=== PATIENT | female | born 1985 | race Caucasian/White ===

== ENCOUNTER 2024-02-20 13:41 | Emergency (ER) | payer OTHER, SELFPAY ==
[2024-02-20 13:42] VITALS: BP 146/90; PULSE 121; RESP 16; TEMP 36.8; O2SAT 98; BMI 32.3
[2024-02-20 13:47] VITALS: O2SAT 100
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
[2024-02-20] MEDS: 0.9% Normal Saline (1000mL) 1,000 ML 999 ML IV (14:14)
[2024-02-20 14:26] LABS: Absolute Lymphocyte Count 2.84 X10^3/uL (0.83-4.51); Absolute Neutrophil Count 7.7 X10^3/uL (2.0-7.7); Basophil# 0.05 X10^3/uL; Basophil% 0.4 % (0-1); Eosinophil# 0.12 X10^3/uL; Eosinophils% 1.1 % (0-5); Hematocrit 43.8 % (37-47); Lymphocyte # 2.84 X10^3/ul (0.83-4.51); Mean Corpuscular Hgb 28.3 pg (27.0-32.0); Mean Corpuscular Volume 88.7 fL (81-99); Monocyte# 0.58 X10^3/uL; Monocyte% 5.1 % (0-10); NRBC Flagged by Analyzer 0 % (0-5); Neutrophil # 7.72 X10^3/uL (2.7-7.7); Neutrophil % 67.9 % (47-70); Platelet Count 222 K/mm3 (150-450); RBC Distribution Width CV 13.2 % (11.6-14.6); RBC Distribution Width SD 42.5 fl (35.1-43.9); Red Blood Count 4.94 M/mm3 (4.2-5.4); White Blood Count 11.4 K/mm3 (4.4-11.0)
[2024-02-20 14:38] LABS: AST(SGOT) 126 U/L (15-37); Alanine Aminotransfer ALT/SGPT 102 U/L (13-56); Albumin, Serum 3.1 g/dL (3.2-5.0); Alkaline Phosphatase 61 U/L (45-117); Anion Gap 8 (5-15); BUN 19 mg/dL (7-18); BUN/Creat Ratio 14.8 RATIO (10-20); Bilirubin, Direct 0.19 mg/dL (0.00-0.30); Calcium,Total 8.3 mg/dL (8.5-10.1); Chloride 106 mmol/L (98-107); Creatinine, Serum 1.28 mg/dL (0.55-1.02); EST Glomerular Filtration Rate 50 mL/min (>60); Est Glom Filt Rate - Afr Amer 60 mL/min (>60); Globulin 3.9 g/dL (2.2-4.2); Glucose 141 mg/dL (74-106); Lipase 47 U/L (13-75); Potassium 3.1 mmol/L (3.5-5.1); Sodium Level 136 mmol/L (136-145)
[2024-02-20 14:42] VITALS: BP 132/92; PULSE 105; RESP 22; O2SAT 100
[2024-02-20] MEDS: Potassium Chloride Oral Tablet 20 MEQ 40 MEQ PO (15:19)
[2024-02-20 15:24] VITALS: BP 169/91; PULSE 96; RESP 20; TEMP 36.7; O2SAT 98
== END 2024-02-20 15:25 | disposition home or self-care (01) ==
PROVIDERS: Emergency Provider Emergency Medicine; Visit Provider Emergency Medicine
DX: S06.0X9A Concussion with loss of consciousness of unspecified duration, initial encounter (principal); S20.20XA Contusion of thorax, unspecified, initial encounter; S00.83XA Contusion of other part of head, initial encounter; S00.31XA Abrasion of nose, initial encounter; E87.6 Hypokalemia; V19.9XXA Pedal cyclist (driver) (passenger) injured in unspecified traffic accident, initial encounter; Y93.55 Activity, bike riding
CPT/HCPCS: 70450; 71260; 72125; 74177; 80048; 80076; 83690; 85025; 99284; Q9967

== ENCOUNTER 2024-04-08 17:50 | Observation (INO) | payer OTHER, SELFPAY ==
[2024-04-08 17:51] VITALS: BP 136/85; PULSE 107; RESP 18; TEMP 36.8; O2SAT 99; BMI 30.9
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
--- NOTE | 2024-04-08 18:11 | EKG12_ITS ---
Test Reason : SYNCOPE Blood Pressure : */* mmHG Vent. Rate : 107 BPM Atrial Rate : 107 BPM P-R Int : 134 ms QRS Dur : 70 ms QT Int : 338 ms P-R-T Axes : 36 20 60 degrees QTcB Int : 451 ms Sinus tachycardia Minimal voltage criteria for LVH, may be normal variant ( R in aVL ) Borderline ECG Confirmed by KAILASH DICKSON, ADEOLA ([id number]), continuity editor KATIE BUTLER ([id number]) on 04/11/2024 9:37:47 AM Referred By: Gianluca Robles Confirmed By: ADEOLA LINDER MD
[2024-04-08 18:19] LABS: Absolute Lymphocyte Count 3.02 X10^3/uL (0.83-4.51); Absolute Neutrophil Count 5.1 X10^3/uL (2.0-7.7); Basophil# 0.05 X10^3/uL; Basophil% 0.6 % (0-1); Eosinophil# 0.14 X10^3/uL; Eosinophils% 1.6 % (0-5); Hematocrit 43.7 % (37-47); Hemoglobin 14.8 g/dL (12.0-15.0); Lymphocyte # 3.02 X10^3/ul (0.83-4.51); Lymphocyte % 33.7 % (19-41); Mean Corp Hgb Conc 33.9 g/dL (32-36); Mean Corpuscular Hgb 29.4 pg (27.0-32.0); Mean Corpuscular Volume 86.9 fL (81-99); Mean Platelet Vol. 9.7 fl (6.2-12.0); Monocyte# 0.63 X10^3/uL; NRBC Flagged by Analyzer 0 % (0-5); Neutrophil % 56.8 % (47-70); Platelet Count 243 K/mm3 (150-450); RBC Distribution Width CV 13.3 % (11.6-14.6); RBC Distribution Width SD 42.2 fl (35.1-43.9); Red Blood Count 5.03 M/mm3 (4.2-5.4)
--- NOTE | 2024-04-08 18:32 | RAD_ITS ---
STUDY: X-RAY CHEST REASON FOR EXAM: Female, 38 years old. chest pain TECHNIQUE: Single frontal view of the chest. COMPARISON: CT chest February 20, 2024 negative. FINDINGS: Possible new 16 mm faint nodular density left upper lung field. There is no demonstrated pleural abnormality. Normal size heart. Normal mediastinum and micha. Normal visualized pulmonary arteries. Normal visualized aortic arch and descending thoracic aorta. Normal visualized thoracic spine. Normal visualized ribs, clavicles, and shoulders. There is no demonstrated abnormality of the visualized soft tissue structures of the upper abdomen. RAD/Chest 1 View (Portable) IMPRESSION: Left upper lobe density as above. Recommend CT chest with IV contrast. Differential considerations include infectious, inflammatory, neoplastic etiologies. Electronically Signed: Kamaljit Garcia MD at 19:21 EDT ,
[2024-04-08 18:38] LABS: D-Dimer Quantitative (DVT/PE) 0.75 FEU/ug/m (0.27-0.49)
[2024-04-08 18:40] LABS: Anion Gap 8 (5-15); BUN 17 mg/dL (7-18); BUN/Creat Ratio 17.5 RATIO (10-20); Calcium,Total 9.1 mg/dL (8.5-10.1); Chloride 103 mmol/L (98-107); Creatinine, Serum 0.97 mg/dL (0.55-1.02); EST Glomerular Filtration Rate 68 mL/min (>60); Est Glom Filt Rate - Afr Amer 83 mL/min (>60); Estimated Creatinine Clearance 85.24 ml/min; Glucose 97 mg/dL (74-106); Magnesium 2.2 mg/dL (1.6-2.6); Potassium 3.4 mmol/L (3.5-5.1); Sodium Level 136 mmol/L (136-145); Troponin-I HS (w/2H Reflex) 8 pg/mL (3.0-54.0)
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
[2024-04-08 19:51] VITALS: BP 135/92; PULSE 88; RESP 16; O2SAT 98
[2024-04-08 20:14] LABS: Reflex Troponin-HS? (from REC) Y
[2024-04-08 21:00] VITALS: BP 120/89; PULSE 87; RESP 16; O2SAT 97
[2024-04-08 21:11] LABS: Troponin-I HS 40 pg/mL (3.0-54.0)
[2024-04-08 21:36] VITALS: BP 126/89; PULSE 90; RESP 18; TEMP 36.6; O2SAT 97
[2024-04-08] MEDS: Potassium Chloride Oral Tablet 20 MEQ 40 MEQ PO (21:54)
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
[2024-04-08 23:00] VITALS: BP 120/89; PULSE 100; RESP 16; O2SAT 97
--- NOTE | 2024-04-08 23:42 | ECHOCS_ITS ---
Version 2 Reason For Study: Syncope/Near Syncope Procedure This was a 2D Doppler, Color Flow transthoracic echocardiogram. Contrast injection was performed. Exam performed portable in patient room. Left Ventricle Normal LV size. Lateral wall with some non compaction noted. Left ventricular systolic function is normal. The left ventricular ejection fraction is 60 %. No regional wall motion abnormalities noted. Right Ventricle Normal RV size. Normal systolic function. Atria Normal left atrium. Normal right atrium. Mitral Valve Normal mitral valve. Tricuspid Valve Normal tricuspid valve. Aortic Valve Trisinus/trileaflet aortic valve. Pulmonic Valve Normal pulmonic valve. Mild (1+) pulmonic valve insufficiency. Great Vessels Normal aortic root. The pulmonary artery is normal size. Inferior vena cava collapse with respiration. Pericardium/Pleural No pericardial effusion. Medication Diluted definity 1.5ml given slow IV push to enhance endocardial definition. MMode/2D Measurements & Calculations LVIDd: 4.5 cm IVSd: 0.74 cm asc Aorta Diam: 2.3 cm LVIDs: 3.3 cm LVPWd: 0.75 cm FS: 26.9 % LAV(MOD-bp): 25.5 ml LVAd ap4: 23.8 cm2 SV(MOD-sp4): 42.0 ml LAV(MOD-bp) Indexed: 13.3 ml/m2 LVLd ap4: 6.9 cm SI(MOD-sp4): 21.9 ml/m2 LAV(MOD-sp2): 20.8 ml EDV(MOD-sp4): 67.4 ml LAV(MOD-sp4): 29.1 ml EDV(sp4-el): 70.0 ml LVAs ap4: 13.3 cm2 LVLs ap4: 5.7 cm ESV(MOD-sp4): 25.4 ml ESV(sp4-el): 26.4 ml EF(MOD-sp4): 62.3 % EF(sp4-el): 62.3 % SV(sp4-el): 43.6 ml LA A4 area: 12.9 cm2 LA dimension(2D): 3.7 cm RA A4 area: 11.3 cm2 Time Measurements MV dec time: 0.23 sec Doppler Measurements & Calculations MV E max harrison: 97.6 cm/sec Lat Peak E' Harrison: 18.3 cm/sec Med Peak E' Harrison: 9.6 cm/sec MV A max harrison: 51.6 cm/sec E/E' lat: 5.3 E/E' med: 10.1 MV E/A: 1.9 MV dec slope: 417.1 cm/sec2 Ao V2 max: 133.1 cm/sec LV V1 max: 96.8 cm/sec Ao max P.1 mmHg LV V1 max P.8 mmHg Ao V2 mean: 96.2 cm/sec Ao mean P.0 mmHg Ao V2 VTI: 27.8 cm PA V2 max: 88.8 cm/sec ECHO/Echo Complete W/ Contrast Interpretation Summary Normal LV size. Left ventricular systolic function is normal. The left ventricular ejection fraction is 60 %. Lateral wall with some non compaction noted. No regional wall motion abnormalities noted. Ordering Physician: Lincoln Madrigal Performed By: Kyung Means RDCS, RVT
[2024-04-08 23:49] VITALS: BMI 34.6
[2024-04-09 00:03] VITALS: BP 131/88; PULSE 77; RESP 15; TEMP 36.1; O2SAT 97
[2024-04-09 00:06] VITALS: O2SAT 97
[2024-04-09] MEDS: 0.9% Normal Saline (1000mL) 1,000 ML 75 ML IV (00:23)
[2024-04-09 06:03] VITALS: BP 116/76; PULSE 76; RESP 16; TEMP 36.6; O2SAT 98
[2024-04-09 07:06] VITALS: BP 116/76; BP 117/79; BP 118/79; PULSE 76; PULSE 86; PULSE 88
[2024-04-09 07:32] LABS: Troponin-I HS 13 pg/mL (3.0-54.0)
[2024-04-09] MEDS: Enoxaparin 40 MG/0.4 ML Syringe SC (10:15)
[2024-04-09 10:20] VITALS: BP 117/79; PULSE 82; RESP 18; TEMP 36.7; O2SAT 98
--- NOTE | 2024-04-09 12:43 | DCINST_ITS ---
Discharge Instructions Diet Discharge Diet: No restrictions Activity Discharge Activity: Return to Normal Activity Weight Bearing Status: Full weight bearing Follow Up Care Test Results: Test results from this visit will be discussed in further detail at your follow- up appointment, if applicable. Discharge Plan Admission Admit Date/Time: 04/08/24 22:16 Primary Reason for Your Visit: syncope Attending Provider: Bright Sinclair Primary Care Provider: Care Physician,No Primary Consulting Providers: Alonso Negrete; Ashley Polk; Brenda Simms; Kyle Chakraborty; Ender Norris; Willem Mast; GRIS DAVIS; Latisha Dumont; Nickie Richards; Frdedie Tejeda; Lilo Carnes; Lincoln Madrigal Instructions Additional Instructions / Restrictions: When you see your physician, discuss having an EEG performed to rule out seizure disorder See your primary care physician within 2 weeks Discharge Orders/Prescriptions Prescriptions: New potassium chloride 10 mEq tablet,ER particles/crystals 20 meq PO DAILY Qty: 60 0RF Continued overall wellness 10 drp PO TID Patient Comments: 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
--- NOTE | 2024-04-09 12:45 | PCM.DC.SUM ---
Providers Date of Admission: 04/08/24 Date of Discharge: 04/09/24 Primary Care Physician: No Primary Care Phys Reason For Visit: syncope Diagnosis Discharge Diagnosis (1) Syncope and collapse: Status: Acute Code(s): R55 - Syncope and collapse (2) Hypokalemia: Status: Acute Code(s): E87.6 - Hypokalemia (3) Obesity (BMI 30.0-34.9): Status: Acute Code(s): E66.811 - Obesity, class 1 (4) Hx of fracture of rib: Status: Acute Code(s): Z87.81 - Personal history of (healed) traumatic fracture Plan 1. Syncopal episode etiology unclear #2 hypokalemia Medications at Discharge Home Medications drainer 10 drp PO TID 04/08/24 overall wellness 10 drp PO TID 04/08/24 potassium chloride 10 mEq tablet,extended release(part/cryst) 20 meq (2 x 10 mEq) PO DAILY #60 tabs 04/09/24 Hospital Course Operations None Procedures 2-D Echocardiogram Summary of Care Provided Minutes Spent on Discharge: 30 Hospital Course: This 38-year-old white female was seen in the emergency room at [facility] after suffering a syncopal episode at home on her couch. According to the patient's mother she was at approximately 10 minutes, she awoke after that time and was not groggy or somnolent. In the emergency room, labs were remarkable for a potassium of 3.4 otherwise labs were normal. Chest x-ray was performed that showed a left upper lobe density, CTA was then obtained which showed a callus from multiple subacute rib fractures that the patient had suffered recently. Patient was placed in observation status on PCU, she underwent an echocardiogram which was unremarkable. An EEG and carotid Dopplers were ordered but could not be performed due to the weekend. This examiner did not feel the patient needed carotid Dopplers performed but did advise the patient and her mother to talk to her physician about obtaining an outpatient EEG. I think it was unlikely this was a seizure however. Telemetry showed only a brief (2-second) episode of bradycardia in the 30s which was asymptomatic. On 04/09/2024, patient was seen and examined: On examination she appeared in good health and spirits, she does not appear to be in any distress. Vital signs as documented. Skin warm and dry and without overt rashes. Neck without JVD, thyroid appears normal, trachea is midline, neck is supple. Lungs clear, normal air movement was noted. Heart exam notable for regular rhythm, normal sounds and absence of murmurs, rubs or gallops. Abdomen unremarkable and without evidence of organomegaly, masses, or abdominal aortic enlargement, bowel sounds are present in all 4 quadrants, no abdominal tenderness was noted. Extremities nonedematous, no cyanosis was noted, no clubbing was noted. Neuro: Cranial nerves II through XII are grossly intact, no focal motor deficits were noted, sensation to light touch and pinprick is intact, motor exam 5/5 throughout. Psych: Patient is alert and oriented x3, she does not appear anxious or depressed, she does not appear agitated. Patient was discharged on 04/09/2024 in stable condition Weight / BMI Weight Weight: 80.4 kg Body Mass Index (BMI) 34.6 ABG / Lab / Microbiology Data 04/08/24 18:03 04/08/24 18:03 Laboratory: Laboratory Results - last 24 hr 04/08/24 18:03: WBC 9.0, RBC 5.03, Hgb 14.8, Hct 43.7, MCV 86.9, MCH 29.4, MCHC 33.9, RDW Std Deviation 42.2, RDW Coeff of Yoly 13.3, Plt Count 243, MPV 9.7, Immature Gran % (Auto) 0.300, Neut % (Auto) 56.8, Lymph % (Auto) 33.7, [place] % (Auto) 7.0, Eos % (Auto) 1.6, Baso % (Auto) 0.6, Absolute Neuts (auto) 5.1, Absolute Lymphs (auto) 3.02, Nucleated RBC % 0, D-Dimer Quant (PE/DVT) 0.75 H*, Sodium 136, Potassium 3.4 L, Chloride 103, Carbon Dioxide 25.0, Anion Gap 8, BUN 17, Creatinine 0.97, Estim Creat Clear Calc 85.24, Est GFR (MDRD) Af Amer 83, Est GFR (MDRD) Non-Af 68, BUN/Creatinine Ratio 17.5, Glucose 97, Calcium 9.1, Magnesium 2.2, Troponin I High Sens 8, TSH 3.180 04/08/24 20:18: Troponin I High Sens 40 04/09/24 06:30: Troponin I High Sens 13 Radiography Diagnostic Testing: Radiology Impression Chest X-Ray 04/08/24 18:32 IMPRESSION: Left upper lobe density as above. Recommend CT chest with IV contrast. Differential considerations include infectious, inflammatory, neoplastic etiologies. Electronically Signed: Kamaljit Garcia MD at 19:21 EDT Reading Location ID and State: [facility] / [place] Tel , Service support , Chest CTA 04/08/24 18:43 IMPRESSION: Callus from multiple subacute rib fractures appears to account for the radiographic findings. No pulmonary nodules or masses noted. Electronically Signed: Kamaljit Garcia MD at 19:57 EDT Reading Location ID and State: [facility] / [place] Tel , Service support , Echocardiogram 04/08/24 23:42 Interpretation Summary Normal LV size. Left ventricular systolic function is normal. The left ventricular ejection fraction is 60 %. Lateral wall with some non compaction noted. Ordering Physician: Lincoln Madrigal Performed By: Kyung Means, ALEC, RVT D/C Instructions Discharge Diet: No restrictions Weight Bearing Status: Full weight bearing Meaningful Use Info Meaningful Use Meaningful Use Diagnoses (Choose all that apply): None applicable Ischemic Stroke Statin Dosing Therapy Reference: STATIN DOSE THERAPY REFERENCE: * Patients > 75 years receive moderate or high dose statin therapy. * Patients 75 years or YOUNGER should receive HIGH intensity statin dose unless contraindicated. You will be required to document reason for non-treatment if statin daily dose does not meet guidelines. HIGH DOSE STATIN THERAPY DAILY Atorvastatin > than or = to 40 mg Rosuvastatin > than or = to 20 mg Amlodipine + Atorvastatin > than or = to 2.5/40 mg Ezetimibe + Simvastatin 10/80 mg Simvastatin 80mg Discharge Plan Admission Admit Date/Time: 04/08/24 22:16 Primary Reason for Your Visit: syncope Attending Provider: Bright Sinclair Primary Care Provider: Care Physician,No Primary Consulting Providers: Alonso Negrete; Ashley Polk; Brenda Simms; Kyle Chakraborty; Ender Norris; Willem Mast; GRIS DAVIS; Latisha Dumont; Nickie Richards; Freddie Tejeda; Lilo Carnes; Lincoln Madrigal Instructions Additional Instructions / Restrictions: When you see your physician, discuss having an EEG performed to rule out seizure disorder See your primary care physician within 2 weeks Discharge Orders/Prescriptions Prescriptions: New potassium chloride 10 mEq tablet,ER particles/crystals 20 meq PO DAILY Qty: 60 0RF Continued overall wellness 10 drp PO TID Patient 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
[2024-04-09 12:55] VITALS: BP 117/79; PULSE 82; RESP 18; TEMP 36.7; O2SAT 98
== END 2024-04-09 12:45 | disposition home or self-care (01) ==
LOC: ED 21:27 → PCU 23:02
PROVIDERS: Admitting Provider Internal Medicine; Emergency Provider Emergency Medicine; Referring Provider Emergency Medicine; Visit Provider Internal Medicine
DX: R55 Syncope and collapse (principal); E87.6 Hypokalemia; J98.4 Other disorders of lung; E66.811 Obesity, class 1; Z68.34 Body mass index [BMI] 34.0-34.9, adult; R00.1 Bradycardia, unspecified; Z87.81 Personal history of (healed) traumatic fracture
CPT/HCPCS: 36415; 71045; 71275; 80048; 83735; 84443; 84484; 85025; 85379; 93005; 93306; 96360; 96361; 96372; 99221; 99285; J7030; Q9957; Q9967; A4216; C8929; G0378

== ENCOUNTER 2024-05-29 10:45 | Emergency (ER) | payer OTHER, SELFPAY ==
[2024-05-29 10:46] VITALS: BP 140/88; PULSE 112; RESP 20; TEMP 36.8; O2SAT 96; BMI 36.1
--- NOTE | 2024-05-29 11:10 | EX.ED.DYSGE1 ---
HPI History of Present Illness Chief Complaint: Seizure [facility] Medical History Syncope and collapse Home Medications ?Medication ?Instructions ?Recorded ?Last Taken ?Type drainer 10 drp PO TID 04/08/24 Unknown History overall wellness 10 drp PO TID 04/08/24 Unknown History potassium chloride 10 mEq 20 meq (2 x 10 mEq) PO DAILY #60 04/09/24 Unknown Rx tablet,extended release(part/cryst) tabs Allergy/AdvReac Type Severity Reaction Status Date / Time No Known Allergies Allergy Verified 05/29/24 10:49 Social History Smoking Status: Never smoker EXAM Physical Exam Const Vital Signs: 05/29/24 10:46 05/29/24 12:41 Temperature 98.2 F Temperature Source Oral Pulse Rate 112 H 90 Respiratory Rate 20 H 24 H Blood Pressure 140/88 H 114/89 H Blood Pressure Mean 105 97 Pulse Ox 96 98 Oxygen Delivery Method Room Air Room Air MDM MDM MDM Narrative Medical decision making narrative: HISTORY OF PRESENT ILLNESS: This 38-year-old female presents concern for seizure-like activity. Per the patient and loved one the patient started approximate hour prior to arrival. She has transient loss of consciousness and immediate return to baseline. No tongue biting, no bowel or bladder incontinence. It was not preceded by headache, chest pain, abdominal pain, warmth, dizziness, vomiting or diarrhea. Per EMS patient was postictal on their arrival REVIEW OF SYSTEMS: Pertinent positives: Syncope for seizure, headache Pertinent negatives: Chest pain, shortness of breath, bleeding, vomiting PHYSICAL EXAM: Nursing triage notes reviewed, Vital signs reviewed Constitutional: please see mdm HENT: MMM, no tongue biting Eyes: Pupils equal round and reactive to light, Extraocular muscles intact Neck: No stridor, no JVD, full neck ROM Lungs: Clear to auscultation, No wheezing or rales. No increased work of breathing, no conversational dyspnea, no accessory muscle use, no nasal flaring. No respiratory distress noted Heart: Regular rate and rhythm, No murmurs, No rubs and No gallops, 2+ distal pulses (radial, femoral, posterior tibial) in all extremities Abdomen: Soft, there is no tenderness, rigidity, rebound or guarding, no obvious peritoneal signs, no palpable pulsatile abdominal masses, no auscultated abdominal bruit : No CVAT, no signs of bowel bladder incontinence Extremities: No edema Neuro: Alert and oriented x3, neuro exam at baseline, cranial nerves II through XII are intact. No pain with extraocular muscle movement. There is negative test of skew. 5 of 5 strength in upper and lower extremities in flexion extension. Intact sensation to light touch in upper and lower extremity dermatomes. No truncal or extremity ataxia. No dysdiadochokinesia. Normal gait. 2+ reflexes in upper and lower extremities. No meningeal signs. Negative Babinski. NIH of 0. Skin: No rash or lesions noted MEDICAL DECISION MAKING: Chief Complaint: Syncope for seizure External records reviewed: [Reviewed prior echocardiogram from April 2024: Showed ejection fraction of 60% with no regional wall motion abnormalities Factors affecting care: History of syncope, obesity, hypokalemia Social determinants of health: none History obtained from others: none Consults: none MDM Narrative: The patient was initially tachycardic rate of 112, otherwise afebrile and nontoxic-appearing. Initial neurologic exam was intact I considered the following differential diagnosis: ICH, electrolyte disturbance, anemia, myocardial ischemia, arrhythmia I obtained a broad lab and imaging workup ALL IMAGES (IF OBTAINED) HAVE BEEN PERSONALLY REVIEWED AND INTERPRETED BY MYSELF. EKG with normal sinus rhythm, normal axis, normal intervals, no STEMI CBC without leukocytosis, severe anemia, no thrombocytopenia. CMP without evidence of acute kidney injury, significant electrolyte abnormality, anion gap to suggest end organ hypo-perfusion, no evidence of metabolic acidosis with a normal bicarbonate, no evidence of hepatobiliary obstructive pathology. Lactate is wnl indicating no end-organ hypoperfusion and/or hypoxia. I have personally reviewed the patient's chest x-ray. Chest x-ray is unremarkable for pulmonary edema, pneumothorax, pneumonia or focal cardiopulmonary abnormality. CT head the brain was negative for ICH Initial troponin was 4, delta troponin 22. Delta of 18 still rules out based on high-sensitivity troponin protocol of 20. The synthesis of the patient's history, physical exam, labs images suggest no acute life-limiting etiology. Specifically clinically the patient's presentation was not consistent with seizure. Lactate was negative. No tongue biting or bowel or bladder incontinence. Low suspicion for seizure. In terms of syncope the patient had no signs of severe anemia, electrolyte disturbances, signs of pneumothorax, heart failure, pericardial effusion, myocardial ischemia. There is no clear life or limb threatening etiology that could be ascertained. No indication for admission at this time. I was further reassured the patient did not require admission given her recent admission with a echocardiogram which was reassuring. Will give her close outpatient cardiology follow-up. Instructed patient not to drive or swim. The patient and/or family, caregivers express understanding. The patient and/or family, caregivers agrees with the plan. Shared decision making: I will have a discussion with the patient and or visitors regarding risk/benefits of further testing or admission. They will be made aware of of the risk/benefits inherent in this decision they will be given the opportunity to voice understanding. Total critical care time today provided was at least 0 minutes. This excludes separately billable procedures. Critical care time (if documented) is secondary to the patient having high probability of clinically significant/life threatening deterioration in the patient's condition which required my urgent intervention. Impression: 1. Syncope 2. Tachycardia Dispo: Discharge home This note was generated with [employer] dictation software. It may contain incorrect words, spelling, and punctuation that were not noted in review of the chart prior to signing. Lab Data Labs: Laboratory Results - last 24 hr 05/29/24 05/29/24 05/29/24 11:00 11:57 13:00 WBC 6.4 RBC 5.00 Hgb 14.3 Hct 43.7 MCV 87.4 MCH 28.6 MCHC 32.7 RDW Std Deviation 41.6 RDW Coeff of Yoly 13.2 Plt Count 234 MPV 10.0 Sodium 136 Potassium 4.2 Chloride 105 Carbon Dioxide 27.0 Anion Gap 4 L BUN 13 Creatinine 0.90 Estim Creat Clear Calc 82.28 Est GFR (MDRD) Af Amer 90 Est GFR (MDRD) Non-Af 74 BUN/Creatinine Ratio 14.4 Glucose 105 Lactic Acid 1.4 Calcium 8.7 Total Bilirubin 0.80 AST 13 L ALT 19 Alkaline Phosphatase 64 Troponin I High Sens 4 22 Total Protein 7.3 Albumin 3.2 Globulin 4.1 Albumin/Globulin Ratio 0.8 L Radiography Diagnostic Testing: Clinical Impression(s) from Imaging Studies Brain CT 05/29/24 11:46 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 Otherwise, no evidence of acute intracranial pathology. RECOMMENDATIONS: Consider follow-up MRI. Electronically Signed: Derek FournierShana Singh DO at 12:57 EST , Chest X-Ray 05/29/24 12:25 IMPRESSION: No radiographic evidence of acute cardiopulmonary disease. Electronically Signed: Derek FournierShana Singh DO at 12:58 EST , Discharge Plan Triage Chief Complaint: Seizure ED Provider: Ramone Mcleod Dx/Rx/DC Orders Prescriptions: No Action overall wellness 10 drp PO TID Patient Comments: pts own medication drainer 10 drp PO TID Patient Comments: pts own medication potassium chloride 10 mEq tablet,ER particles/crystals 20 meq PO DAILY Qty: 60 0RF Primary Care Provider: Jamari Marvin Referrals: Jamari Marvin DO [Primary Care Provider] - Print Language: Wolof
--- NOTE | 2024-05-29 11:46 | EKG12_ITS ---
Test Reason : SEIZERS Blood Pressure : */* mmHG Vent. Rate : 86 BPM Atrial Rate : 86 BPM P-R Int : 132 ms QRS Dur : 82 ms QT Int : 352 ms P-R-T Axes : 40 26 53 degrees QTcB Int : 421 ms Normal sinus rhythm Normal ECG Confirmed by KAILASH DICKSON, ADEOLA ([id number]), acquisition editor KAITE BUTLER ([id number]) on 05/30/2024 8:26:36 AM Referred By: Confirmed By: ADEOLA LINDER MD
--- NOTE | 2024-05-29 11:46 | CT_ITS ---
EXAM: CT HEAD WITHOUT INTRAVENOUS CONTRAST CLINICAL INDICATION: WONG, syncope vs seizure TECHNIQUE: Multiple axial images were obtained of the head without intravenous contrast. This CT exam was performed using one or more of the following dose reduction techniques: automated exposure control, adjustment of the mA and/or kV according to patient size, and/or use of iterative reconstruction technique. 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 There is no mass, mass-effect, or shift of the midline structures. No evidence of acute infarct or acute intracranial hemorrhage. There is no evidence of pathologic extra-axial fluid. There is no hydrocephalus. Basal cisterns are otherwise patent. BONES/JOINTS: No significant abnormality. No discrete lytic or blastic abnormalities. SINUSES: No significant findings. MASTOID AIR CELLS: No significant effusion. ORBITS: No acute findings. 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 Otherwise, no evidence of acute intracranial pathology. RECOMMENDATIONS: Consider follow-up MRI. Electronically Signed: Derek Singh DO at 12:57 EST ,
[2024-05-29] MEDS: 0.9% Normal Saline (500mL Bag) 500 ML 1000 ML IV (11:59)
[2024-05-29] MEDS: Ondansetron 4 MG/2 ML Vial IV (11:59)
[2024-05-29 12:09] LABS: Hematocrit 43.7 % (37-47); Hemoglobin 14.3 g/dL (12.0-15.0); Mean Corp Hgb Conc 32.7 g/dL (32-36); Mean Corpuscular Hgb 28.6 pg (27.0-32.0); Mean Corpuscular Volume 87.4 fL (81-99); Platelet Count 234 K/mm3 (150-450); RBC Distribution Width CV 13.2 % (11.6-14.6); RBC Distribution Width SD 41.6 fl (35.1-43.9); White Blood Count 6.4 K/mm3 (4.4-11.0)
[2024-05-29 12:25] LABS: ALB/GLOB Ratio 0.8 RATIO (0.9-2.4); AST(SGOT) 13 U/L (15-37); Alanine Aminotransfer ALT/SGPT 19 U/L (13-56); Albumin, Serum 3.2 g/dL (3.2-5.0); Alkaline Phosphatase 64 U/L (45-117); Anion Gap 4 (5-15); BUN 13 mg/dL (7-18); BUN/Creat Ratio 14.4 RATIO (10-20); Calcium,Total 8.7 mg/dL (8.5-10.1); Chloride 105 mmol/L (98-107); EST Glomerular Filtration Rate 74 mL/min (>60); Est Glom Filt Rate - Afr Amer 90 mL/min (>60); Estimated Creatinine Clearance 82.28 ml/min; Globulin 4.1 g/dL (2.2-4.2); Glucose 105 mg/dL (74-106); Potassium 4.2 mmol/L (3.5-5.1); Protein, Total 7.3 g/dL (6.4-8.2); Sodium Level 136 mmol/L (136-145); Troponin-I HS (w/2H Reflex) 4 pg/mL (3.0-54.0)
[2024-05-29 12:25] LABS: Lactic Acid 1.4 mmol/L (0.4-1.9)
--- NOTE | 2024-05-29 12:25 | RAD_ITS ---
EXAM: XR CHEST, 1 VIEW CLINICAL INDICATION: seizure TECHNIQUE: Frontal view of the chest. COMPARISON: 04/08/2024 chest radiograph and CTA chest FINDINGS: LUNGS AND PLEURAL SPACES: No significant abnormality. No consolidation or edema. No pneumothorax. No effusion. HEART: No significant abnormality. Cardiac silhouette not enlarged. MEDIASTINUM: Central airways and mediastinal contour are unremarkable. BONES/JOINTS: No significant abnormality. No acute fracture. SOFT TISSUES: No significant abnormality. RAD/Chest 1 View (Portable) IMPRESSION: No radiographic evidence of acute cardiopulmonary disease. Electronically Signed: Derek Singh DO at 12:58 EST ,
[2024-05-29 12:41] VITALS: BP 114/89; PULSE 90; RESP 24; O2SAT 98
[2024-05-29 13:59] LABS: Reflex Troponin-HS? (from REC) Y
[2024-05-29 14:20] LABS: Troponin-I HS 22 pg/mL (3.0-54.0)
[2024-05-29 14:31] VITALS: BP 118/79; PULSE 78; RESP 16; O2SAT 98
[2024-05-29 14:40] VITALS: BP 118/79; PULSE 78; RESP 16; TEMP 36.8; O2SAT 98
== END 2024-05-29 15:16 | disposition home or self-care (01) ==
PROVIDERS: Emergency Provider Emergency Medicine; PCP Family Medicine; Visit Provider Emergency Medicine
DX: R55 Syncope and collapse (principal); R51.9 Headache, unspecified; R00.0 Tachycardia, unspecified; E66.9 Obesity, unspecified; E87.6 Hypokalemia
CPT/HCPCS: 70450; 71045; 80053; 83605; 84484; 85027; 93005; 96361; 96374; 99285; A4216; J2405

== ENCOUNTER → 2024-07-06 | Outpatient (CLI) | payer OTHER, SELFPAY ==
[2024-07-06 15:50] LABS: Anion Gap 7 (5-15); BUN 15 mg/dL (7-18); Calcium,Total 9.2 mg/dL (8.5-10.1); Chloride 104 mmol/L (98-107); Creatinine, Serum 0.94 mg/dL (0.55-1.02); EST Glomerular Filtration Rate 71 mL/min (>60); Est Glom Filt Rate - Afr Amer 86 mL/min (>60); Glucose 87 mg/dL (74-106); Potassium 3.6 mmol/L (3.5-5.1); Sodium Level 138 mmol/L (136-145)
== END | disposition home or self-care (01) ==
LOC: LAB 14:27
PROVIDERS: PCP Family Medicine; Referring Provider Internal Medicine Cardiovascular Disease; Visit Provider Internal Medicine Cardiovascular Disease
DX: R55 Syncope and collapse (principal)
CPT/HCPCS: 36415; 80048

== ENCOUNTER 2024-07-19 07:04 | Day surgery (SDC) | payer OTHER, SELFPAY ==
[2024-07-18 08:48] VITALS: BMI 36.3
--- NOTE | 2024-07-19 08:15 | CL.IE_ITS ---
Patient: RO PEÑALOZA Study Date: 07/19/2024 Performing: Srinivasan Gamino MD : [id number] Age: 38 Gender: female PROCEDURES PERFORMED [id number])INSERTION OF LOOP RECORDER INDICATIONS Syncope PROCEDURE DETAILS The patient was brought to the Catheterization Lab in the postabsorptive nonsedated state. Informed consent was obtained prior to the procedure. Local anesthetic was given subcutaneously to the left upper chest area with Lidocaine 2%. Incision was made to the left upper chest. ICM Loop Recorder was inserted. Steri-strips applied to Lt chest area. The patient tolerated the procedure well. Estimated Blood Loss: 10 ml's IMPLANTED / EX-PLANTED DEVICES IMPLANTED DEVICE(S): ICM Loop Recorder - Photoresist Printer: [employer], Model # [employer]-[id number] [id number] , Serial # [id number] DEVICE PARAMETERS CONCLUSIONS / RECOMMENDATIONS Device Conclusions: Successful implantation of a patient activated loop recorder. Device Recommendations: Follow up with Primary Care Physician PROCEDURE MEDICATIONS Versed 1 mg IV Oxygen: 2 L/min via nasal cannula Ancef 2 Gm IV @ 07/19/2024 07:52:01 Signed By Srinivasan Gamino MD On 07/19/2024 08:14:11 Srinivasan Gamino MD
== END 2024-07-19 09:20 | disposition home or self-care (01) ==
PROVIDERS: PCP Family Medicine; Referring Provider Internal Medicine Cardiovascular Disease; Visit Provider Internal Medicine Cardiovascular Disease
DX: R55 Syncope and collapse (principal)
CPT/HCPCS: 33285; 99152